=== PATIENT | male | born 1945 | race Caucasian/White ===

== ENCOUNTER 2019-01-06 12:55 | Observation (INO) | payer MEDICARE ==
[2019-01-06] MEDS ORDERED: NS 0.9% 1000 ML** 1,000 ML IV ONE (13:03)
--- NOTE | 2019-01-06 13:14 | ED ---
Neurological HPI - HPI Summary HPI Summary: Pt is a 73 y/o M presenting to the ED with a chief complaint of neurological deficit. CODE FLOR CALLED 13:02, pt straight to CT. Per the pts , she thought he was asleep in the backseat of their car, so she tried to talk to him and wake him up at around 1230, but he was not responding to verbal stimuli. They stopped the car and he was still less responsive, but had slurred speech and confusion. He is usually very clear-minded and active, but he does have hx of TIA. She is unsure if he is on blood thinners. Pt himself denies weakness or fever. - History of Current Complaint Chief Complaint: EDNeurologicalDeficit Stated Complaint: SLURRING SPEECH NOT RESPONDING PER Time Seen by Provider: 01/06/19 13:02 Last Known Well Date: 01/06/19 unsure what time, before 12:00 Hx Obtained From: Patient Onset/Duration: Sudden Onset, Started hours ago, Still Present Timing: Constant Onset Severity: Moderate Current Severity: Moderate Pain Intensity: 0 Pain Scale Used: 0-10 Numeric Character: Impaired Speech, Responsiveness Aggravating: Unknown Alleviating: Unknown Associated Signs and Symptoms: Positive: Memory Loss, Confusion, Decreased Level of Consciousness, Impaired Speech. Negative: Weakness TPA Considered: Yes - not given as advised by physician at [facility] Similar Episode/Dx as: prior TIA - Allergy/Home Medications Allergies/Adverse Reactions: Allergies Allergy/AdvReac Type Severity Reaction Status Date / Time No Known Allergies Allergy Verified 01/06/19 14:31 Home Medications: Home Medications Atorvastatin Calcium 40 mg PO DAILY 01/06/19 [History Confirmed 01/06/19] Clopidogrel 75 mg PO DAILY 01/06/19 [History Confirmed 01/06/19] Losartan Potassium 25 mg PO DAILY 01/06/19 [History Confirmed 01/06/19] Meloxicam 15 mg PO DAILY 01/06/19 [History Confirmed 01/06/19] PMH/Surg Hx/FS Hx/Imm Hx Previously Healthy: Yes Endocrine/Hematology History: Reports: Hx Anticoagulant Therapy - plavix EENT History: Reports: Hx Hearing Aid Neurological History: Reports: Hx Transient Ischemic Attacks (TIA) Infectious Disease History: No Infectious Disease History: Denies: Traveled Outside the [place] in Last 30 Days - Family History Known Family History: Negative: Respiratory Disease - Social History Lives: With Family Hx Substance Use: No Substance Use Type: Reports: None Review of Systems Negative: Fever Neurological: Other - decreased LOC/responsiveness, confusion Positive: Slurred Speech. Negative: Weakness All Other Systems Reviewed And Are Negative: Yes Physical Exam - Summary Physical Exam Summary: Appearance: Well appearing, no pain distress Skin: warm, dry, reflects adequate perfusion Head/face: normal Eyes: EOMI, JABIER ENT: normal Neck: supple, non-tender Respiratory: CTA, breath sounds present Cardiovascular: RRR, pulses symmetrical Abdomen: non-tender, soft Musculoskeletal: normal, strength/ROM intact Neuro: sensory motor intact, see NIH stroke scale. Triage Information Reviewed: Yes Vital Signs On Initial Exam: Initial Vitals Temp Pulse Resp BP Pulse Ox 98.2 F 66 17 148/82 96 01/06/19 12:58 01/06/19 12:58 01/06/19 12:58 01/06/19 12:58 01/06/19 12:58 Vital Signs Reviewed: Yes - [place]estone Coma Scale Best Eye Response: 4 - Spontaneous Best Motor Response: 6 - Obeys Commands Best Verbal Response: 4 - Confused Coma Scale Total: 14 Diagnostics - Vital Signs Vital Signs Temp Pulse Resp BP Pulse Ox 01/06/19 12:58 98.2 F 66 17 148/82 96 - Laboratory Result Diagrams: 01/06/19 13:15 01/06/19 13:15 Lab Statement: Any lab studies that have been ordered have been reviewed, and results considered in the medical decision making process. - Radiology CXR Radiology Interpretation Completed By: Radiologist Summary of Radiographic Findings: No active cardiopulmonary disease. ED physician has reviewed this report. - CT Brain CT CT Interpretation Completed By: Radiologist Summary of CT Findings: No acute intracranial pathology. Chronic small vessel ischemic changes. ED physician has reviewed this report. Head/Neck CTA CT Interpretation Completed By: Radiologist Summary of CT Findings: NO INTERNAL CAROTID ARTERY STENOSIS BY NASCET CRITERIA. THERE IS INTRACRANIAL ATHEROSCLEROSIS WITH MODERATE NARROWING OF THE MID THIRD OF THE BASILAR ARTERY. ELSEWHERE, THERE IS NO ANEURYSM, VASCULAR MALFORMATION, OCCLUSION, OR STENOSIS OF THE VISUALIZED INTRACRANIAL CIRCULATION. ED physician has reviewed this report. - EKG 1322 Cardiac Rate: NL - 65bpm EKG Rhythm: Sinus Rhythm ST Segment: Normal Ectopy: None Summary of EKG Findings: EKG at 1322 shows NSR at 65bpm with no STEMI. NIH Scale - NIH Scale Level of Consciousness: Alert/Keenly Responsive Ask Patient the Month and His/Her Age: Neither Correct/Aphasic Ask Pt to Open/Close Eyes and Business Account Executive/Release Non-Paretic Hand: Both Correctly Best Gaze (Only Horizontal Eye Movement): Normal Visual Field Testing: No Visual Loss Facial Paresis-Pt to Smile & Close Eyes or Grimace Symmetry: Normal/Symmetrical Motor Function - Right Arm: No Drift-Holds 10 Seconds Motor Function - Left Arm: No Drift-Holds 10 Seconds Motor Function - Right Leg: No Drift-Holds 10 Seconds Motor Function - Left Leg: No Drift-Holds 10 Seconds Limb Ataxia-Must be out of Proportion to Weakness Present: Absent Sensory (Use Pinprick to Test Arms/Legs/Trunk/Face): Normal Best Language (Describe Picture, Name Items): No Aphasia Dysarthria (Read Several Words): Slurs Some Words Extinction and Inattention: No Abnormality Total Score: 3 Re-Evaluation - Re-Evaluation 1st re-eval Re-Evaluation Time: 13:31 Change: Unchanged Comment: Pt actively vomiting in room. Course/Dx - Course Course Of Treatment: Pt is a 73 y/o M presenting to the ED with a neurological deficit. CODE RAY CALLED 1302, pt straight to CT. Pts states he was asleep, and when she tried to wake him he was unresponsive. He eventually woke up but had slurred speech and was quite confused, which is abnormal compared with his baseline. He does have hx of TIA. Pt returned to room at 1311 and denies weakness or fever. NIH stroke scale as of 1318 is 3 d/t inability to correctly answer date and age, as well as some slurred speech and confusion. Brain CT shows no acute intracranial pathology, but there are chronic small vessel ischemic changes. Pt is on Plavix. Pt began actively vomiting at 1331, I gave Zofran to alleviate. Bellamy on the phone at 1338 with telestroke to perform second NIH stroke scale. Pt reports TIA 3 weeks ago, but his states it was approximately 3 months ago, with sx recovering in about 20-25 minutes. [place] physician recommends not giving tPA at 1349. His NIH stroke scale on telestroke was 1 d/t mild aphasia. Pt's sx are actively improving while present in the ED, and a CTA will be ordered. CXR shows no active cardiopulmonary disease. CTA of the head/neck shows: NO INTERNAL CAROTID ARTERY STENOSIS BY NASCET CRITERIA. THERE IS INTRACRANIAL ATHEROSCLEROSIS WITH MODERATE NARROWING OF THE MID THIRD OF THE BASILAR ARTERY. ELSEWHERE, THERE IS NO ANEURYSM, VASCULAR MALFORMATION, OCCLUSION, OR STENOSIS OF THE VISUALIZED INTRACRANIAL CIRCULATION. EKG at 1322 shows NSR at 65bpm with no STEMI. I spoke with Dr. Perez who will be accepting the pt to [facility] [place] a dx of CVA. - Differential Dx Differential Diagnoses Neuro: Positive: Cerebrovascular Accident, Dysrhythmia, Hypertension, Intracranial Bleed, Transient Ischemic Attack - Diagnoses Provider Diagnoses: CVA (cerebral vascular accident) - Critical Care Time Critical Care Time: 30-74 min - 60minutes Discharge - Sign-Out/Discharge Documenting (check all that apply): Patient Departure - Discharge Plan Condition: Stable Disposition: ADMITTED TO [facility] Referrals: [facility], [Primary Care Provider] - - Billing Disposition and Condition Condition: STABLE Disposition: Admitted to [facility] - Attestation Statements Document Initiated by Scribe: Yes Documenting Scribe: Magda Mckinney Provider For Whom Scribe is Documenting (Include Credential): Robin Hunt MD. Scribe Attestation: I, arjun Horne for Robin Hunt MD. on 01/06/19 at 1612. Scribe Documentation Reviewed: Yes Provider Attestation: The documentation as recorded by the enidibe, Magda Mckinney accurately reflects the service I personally performed and the decisions made by me, Robin Hunt MD. Status of Scribe Document: Viewed Consult Consult: [id number] - I spoke with Dr. Perez who will be accepting the pt to [facility] with a dx of CVA.
[2019-01-06] MEDS ORDERED: Alteplase* 100 MG VIAL ONE (13:23)
[2019-01-06 13:29] LABS: ABS Basophils 0.1 10^3/ul (0-0.2); ABS Eosinophils 0.1 10^3/ul (0-0.6); ABS Lymphocytes 1.2 10^3/ul (1.0-4.8); ABS Monocytes 0.6 10^3/ul (0-0.8); ABS Neutrophils 4.8 10^3/ul (1.5-7.7); Eosinophil % 1.1 %; Hematocrit 42 % (42-52); Hemoglobin 14.3 g/dL (14.0-18.0); Lymphocyte % 17.4 %; Mean Corpuscular HGB Conc 34 g/dL (31-36); Mean Corpuscular Hemoglobin 31 pg (27-31); Mean Corpuscular Volume 91 fL (80-94); Mean Platelet Volume 7.6 fL (7.4-10.4); Platelet Count 216 10^3/uL (150-450); Red Blood Count 4.59 10^6 /uL (4.18-5.48); Red Cell Distribution Width 13 % (10.5-15); White Blood Count 6.7 10^3/uL (3.5-10.8)
[2019-01-06] MEDS ORDERED: Ondansetron INJ* 2 MG/ML VIAL IV ONE (13:31)
[2019-01-06] MEDS ORDERED: Ondansetron INJ* 2 MG/ML VIAL ONE (13:32)
[2019-01-06] MEDS ORDERED: Alteplase* 100 MG in PREMIX* 100 ML IV ONE (13:33)
[2019-01-06] MEDS ORDERED: ALTEPLASE IV ONE ×3 (13:33→13:45)
[2019-01-06 13:42] LABS: Activated Partial Thrombo Time 26.2 seconds (26.0-36.3); INR 1.21 (0.82-1.09)
[2019-01-06 13:50] LABS: Albumin 4.1 g/dL (3.2-5.2); Albumin/Globulin Ratio 1.5 (1-3); BUN/Creatinine Ratio 18.6 (8-20); Calcium 8.9 mg/dL (8.6-10.3); EGFR African American 105.2 (>60); EGFR Non-African American 86.9 (>60); Globulin 2.8 g/dL (2-4); HDL Cholesterol 31.9 mg/dL; Potassium 3.9 mmol/L (3.5-5.0); Total Bilirubin 0.6 mg/dL (0.2-1.0); Total Protein 6.9 g/dL (6.4-8.9)
[2019-01-06] MEDS ORDERED: Iohexol 350* (CONTRAST) 500 ML MDV IV ONE (14:03)
[2019-01-06] MEDS ORDERED: Acetaminophen TAB* 325 MG PO PRN (16:14)
[2019-01-06] MEDS ORDERED: Ondansetron INJ* 2 MG/ML VIAL IV PRN (16:14)
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
[2019-01-06] MEDS: Clopidogrel TAB* 75 MG PO SCH (20:02)
[2019-01-06] MEDS: Aspirin EC TAB* 81 MG TAB.EC PO SCH (20:02)
[2019-01-06] MEDS: Enoxaparin(*) 40 MG/0.4 ML SYR SUBCUT SCH (20:03)
[2019-01-06] MEDS ORDERED: Atorvastatin* 40 MG TAB PO SCH (21:00)
[2019-01-07 06:24] LABS: ABS Eosinophils 0.1 10^3/ul (0-0.6); ABS Lymphocytes 1.2 10^3/ul (1.0-4.8); ABS Monocytes 0.6 10^3/ul (0-0.8); ABS Neutrophils 4.6 10^3/ul (1.5-7.7); Eosinophil % 1.2 %; Hematocrit 39 % (42-52); Hemoglobin 13.4 g/dL (14.0-18.0); Lymphocyte % 18.6 %; Mean Corpuscular HGB Conc 35 g/dL (31-36); Mean Corpuscular Hemoglobin 31 pg (27-31); Mean Corpuscular Volume 90 fL (80-94); Mean Platelet Volume 7.7 fL (7.4-10.4); Platelet Count 184 10^3/uL (150-450); Red Blood Count 4.29 10^6 /uL (4.18-5.48); Red Cell Distribution Width 13 % (10.5-15); White Blood Count 6.5 10^3/uL (3.5-10.8)
[2019-01-07 06:42] LABS: BUN/Creatinine Ratio 14.1 (8-20); Calcium 8.4 mg/dL (8.6-10.3); EGFR African American 106.6 (>60); EGFR Non-African American 88.1 (>60)
[2019-01-07] MEDS ORDERED: Losartan TAB* 25 MG PO SCH (09:00)
[2019-01-07] MEDS: Aspirin EC TAB* 81 MG TAB.EC PO SCH (09:23)
[2019-01-07] MEDS: Clopidogrel TAB* 75 MG PO SCH (09:23)
--- NOTE | 2019-01-07 09:42 | ECHO ---
*[facility]* [place] [address] Fax #: [phone] Transthoracic Echocardiogram Patient: Ruben Torrez Height: 68 in / 172.7 cm : 1945 Weight: 179.6 lb / Study Date: 01/07/2019 81.6 kg Age: 73 BP: 110 / 63 Gender: M BMI/BSA: 27.4 kg/m^2 / HR: 65 bpm 1.95 m^2 *Cattery Operator: * Holly Vega [facility] *Referring Physician: * Pat Candelario *Reading Physician: * Salome Pichardo MD Indications: TIA. History: PMH: Transient ischemic attack. Risk factors: Hypertension. Hyperlipidemia. Conclusions Summary: 1. Left ventricle: There is mild concentric hypertrophy. Systolic function is normal. The estimated ejection fraction is 55-60%. 2. Left atrium: The atrium is mildly dilated. 3. Atrial septum: Bubble study was negative 4. Mitral valve: There is mild regurgitation. 5. Aortic valve: There is trace to mild regurgitation. 6. Tricuspid valve: There is mild regurgitation. 7. No previous echocardiogram available. Study data: Transthoracic echocardiogram. Procedure: Transthoracic echocardiography was performed. Image quality was fair. A bubble study was performed. Images 93 and 94. Complete 2D, spectral Doppler, and color flow Doppler. Location: Echo laboratory. Patient status: Inpatient. Patient room number: 434. Rhythm: Normal sinus rhythm with PAC's. Findings Left ventricle: The cavity size is normal. There is mild concentric hypertrophy. Systolic function is normal. The estimated ejection fraction is 55-60%. Wall motion is normal; there are no regional wall motion abnormalities. There is no consistent Doppler evidence of clinically significant diastolic dysfunction. Right ventricle: The cavity size is normal. Wall thickness is mildly to moderately increased. The moderator band is in a normal position. Systolic function is normal. Left atrium: The atrium is mildly dilated. Right atrium: The atrium is normal in size. Atrial septum: Bubble study was negative Mitral valve: The leaflets are normal thickness. There is no evidence of stenosis. There is mild regurgitation. Aortic valve: The valve is trileaflet. The leaflets are normal thickness. There is no evidence of stenosis. There is trace to mild regurgitation. Tricuspid valve: The leaflets are normal thickness. There is no evidence of stenosis. There is mild regurgitation. Pulmonic valve: The leaflets are normal thickness. There is no evidence of stenosis. There is trace regurgitation. Aorta: Ascending aorta: The ascending aorta is appears normal. Aortic arch: The aortic arch is appears normal. The aortic root is not dilated. Pericardium: A prominent pericardial fat pad is present. There is no pericardial effusion. Pulmonary arteries: Not well visualized. Systemic veins: Inferior vena cava: The vessel is normal in size. The respirophasic diameter changes are in the normal range (>= 50%). Measurements Left ventricle Value Ref Aortic valve continued Value Ref ANAND, LAX 4.7 cm 4.2 - 5.8 Peak v, S 1.17 m/sec ----- ESD, LAX 3.6 cm 2.5 - 4.0 VTI, S 25.3 cm ----- FS, LAX (L) 22 % Mean grad, S 3.0 mm Hg ----- PW, ED, LAX (H) 1.2 cm 0.6 - 1.0 Peak grad, S 5.0 mm Hg ----- FS (L) 22 % - 43 LVOT/AV, VTI ratio 0.67 ----- PW, ED (H) 1.2 cm 0.6 - 1.0 AR peak v 3.18 m/sec ----- E', lat merlene, TDI (L) 8.7 cm/sec >=10.0 AR PHT 704 ms - ---- E/e', lat merlene, 7 AR peak grad 40 mm Hg ---- - TDI E', med merlene, TDI (L) 6.6 cm/sec >=7.0 Mitral valve Value R ef E/e', med merlene, 10 Peak E 0.63 m/sec ---- - TDI Peak A 0.5 m/sec ----- E', avg, TDI 7.7 cm/sec Decel time 268 ms ---- - E/e', avg, TDI 8 <=14 Peak E/A ratio 1.3 - ---- LVOT Value Ref Pulmonic valve Value Ref Peak winter, S 0.69 m/sec Peak v, S 1.16 m/sec ----- VTI, S 17.0 cm Peak grad, S 5.0 mm Hg ----- Mean grad, S 1 mm Hg WA v, ED 1.23 m/sec ----- WA grad, ED 6 mm Hg ----- Ventricular septum Value Ref IVS, ED (H) 1.3 cm 0.6 - 1.0 Tricuspid valve Value Ref TR peak v 2.41 m/sec <=2.8 Right ventricle Value Ref Peak RV-RA grad, S 23 mm Hg ----- AW thickness, ED (H) 1.0 cm 0.1 - 0.5 ANAND, LAX 2.7 cm Aortic root Value Ref ANAND minor ax, A4C (H) 3.9 cm 1.9 - 3.5 Root diam 3.4 cm <4.1 mid Pressure, S 26 mm Hg Ascending aorta Value Ref AAo AP diam, S 3.4 cm ----- Left atrium Value Ref AP dim, ES (H) 4.10 cm 3.00 - Aortic arch Value Ref 4.00 Arch diam 2.8 cm ----- ML dim, A4C 4.5 cm SI dim, A4C 5.3 cm Decending aorta Value Ref Vol/bsa, ES, 1-p (H) 38 ml/m^2 12 - 37 Manny peak winter 1.08 m/sec ----- A4C Vol/bsa, ES, A/L (H) 37 ml/m^2 16 - 34 Pulmonary artery Value Ref Pressure, S 21.0 mm Hg ----- Right atrium Value Ref SI dim, ES 4.8 cm 3.4 - 5.3 Inferior vena cava Value Ref ML dim, ES, A4C 3.5 cm 2.6 - 4.4 Diam 1.9 cm ----- SI dim, ES, A4C 4.8 cm 3.4 - 5.3 SI dim/bsa, ES, 2.4 cm/m^2 1.8 - 3.0 A4C Estimated RAP 3 mm Hg Aortic valve Value Ref Merlene diam, ED 2.5 cm Legend: (L) and (H) erika values outside specified reference range. Prepared and electronically signed by Salome Pichardo MD 01/07/2019 09:42
--- NOTE | 2019-01-07 11:04 | CONS ---
NEUROLOGY CONSULTATION NOTE: DATE OF CONSULT: 01/07/19 CONSULTING PROVIDER: Dr. Pat Candelario. REASON FOR CONSULT: Stroke like symptoms. CHIEF COMPLAINT: Confusion, slurred speech and vomiting. HISTORY OF PRESENT ILLNESS: Mr. Torrez is a 73-year-old male with history of hypertension, dyslipide olimpia, TIA 3 months ago where he was hospitalized at [facility]. At that time, the patient had symptoms of word-finding difficulty that lasted 10 to 20 minutes. He stated that his stroke was otherwise negative. He was placed on antiplatelet therapy, Plavix, and discharged home. The patient stated that on Sunday evening, he developed the sudden onset left hand and left lower lip numbness t hat lasted approximately 5 minutes. He did not think too much out of it and just ignored the symptom s. On Sunday before 1 p.m., the patient stated that he was sitting in the back of a car after he analia t to event to visit the grave of Jaylan Chavez. The patient was sitting in the back when s uddenly he blacked out. He does not recall what happened. He stated that he woke up confused, quest ioning why he was being pulled out to go to the hospital when he did not have any focal neurological deficits. Apparently, he was evaluated by Telestroke at the [facility] and he was deeme d to be a candidate for IV tPA. However, due to his improving symptoms, the tPA was ordered but was never given. Today, the patient denied any visual disturbance, headaches, focal weakness, or paraest hesias. He denied ever having episodes of hypoglycemia in the past. He does snore at night and does not use a CPAP. NIH stroke scale today is 0. In the emergency room, the patient had labs checked that revealed the WBC of 6.5, hemoglobin of 13.4, hematocrit of 39, platelet count of 184, INR 1.21. Sodium of 140, potassium of 4.0, chloride of 110 , carbon dioxide of 24, creatinine of 0.85. He had a CT of the head that was negative, and a CTA head and neck showed evidence of narrowing in the mid distal third of the basilar artery. There was no e vidence of large vessel occlusion. Please note that the lactic acid was 1.3 and hemoglobin A1c was 5 .7. LDL was 43. PAST MEDICAL HISTORY: Multiple TIAs, one being 3 months ago and the other 10 years ago; hypertension ; dyslipidemia; bilateral ankle subluxation and tonsillectomy. HOME MEDICATIONS: 1. Atorvastatin 40 mg p.o. daily. 2. Clopidogrel 75 mg p.o. daily. 3. Losartan 25 mg p.o. daily. 4. Meloxicam 15 mg p.o. daily. The patient is not taking aspirin. DRUG ALLERGIES: No known drug allergies. FAMILY HISTORY: Positive for heart disease. Mother had AAA and possible dissection. SOCIAL HISTORY: He denied any tobacco use. He denied any excessive alcohol use. He drinks rarely le ss than once a week. He is retired. He lives with his partner, Matilda. REVIEW OF SYSTEMS: A 14-point review of systems was obtained and otherwise negative except for what was mentioned in the HPI. PHYSICAL EXAM: Vitals: Temperature of 97.9, pulse of 62, respiratory rate of 18, blood pressure of 110/63. Mental Status: Awake, alert, and oriented to person, place, time, and general circumstances . Speech and language including expression, naming, repetition, and comprehension were assessed and found to be normal. The patient was having breakfast independently. Cranial Nerves: Normal confron tation testing bilaterally. Pupils are mid range and reactive to light. Normal consensual response. No ptosis. Sensation is intact on the forehead, cheeks, and jaw region bilaterally. There is no f acial droop. He is able to hear throughout the history process. Symmetrical palatal elevation. Nor mal strength against resistance. Tongue is symmetric and midline with no atrophy or fasciculation. M otor Examination: No abnormal movements or pronator drift. Normal bulk and tone bilaterally. Proxi mal and distal upper and lower extremity muscles are normal with 5/5 strength bilaterally. Reflexes: Right/left, brachioradialis 2/2, biceps 2/2, triceps 2/2, knee 2/2, ankle 2/2, flexion plantar resp onse bilaterally. Sensation intact to light touch and pinprick throughout the upper and lower extrem ities. Vibratory sensation is 15 seconds on the right and 16 seconds on the left great toes. Proprio ception is intact throughout. Coordination: Normal chrpex-gw-lauq and qiju-qd-yvri testing bilatera lly. Gait: Normal stance, good posture. No ataxia. ASSESSMENT: Mr. JAMEEL Torrez is a 73-year-old man with history of recurrent transient ischemic attacks, mid basilar artery stenosis, who presented with sudden onset disorientation, minimal responsive stat e, with a transient episode of left hand and facial paraesthesias that resolved. He is currently asy mptomatic without any focal neurological deficits. We suspect the patient had another transient isch emic attack most likely in the posterior circulation. This can explain some of his perioral numbness on the left side as well as the left hand paresthesias, however, this does not entirely explain his unresponsive state. I am concerned that there is a second problem here which could potentially be ei ther excessive sleepiness, obstructive sleep apnea, hypoglycemia, or any other non-neurological etiol ogies. We have to make sure the patient not have any underlying cardiac arrhythmias, they can be also explaining some of his symptoms. RECOMMENDATIONS: I recommend placing the patient on telemetry. Continue both aspirin 81 mg and Plav ix 75 mg p.o. daily. The patient was not taking aspirin at home and was only on Plavix. Please obta in orthostatic vitals. Order an MRI of the brain without contrast. No need for any intracranial vas cular studies since the CTA was done. Please obtain a 2D transthoracic echo. The patient will need a sleep study as an outpatient. Continue atorvastatin given his low LDL level. Transient ischemic at tack and primary stroke education was completed today. Please perform neuro checks every 4 hours. N o need for Physical Therapy/Occupational Therapy/TEAM ASSISTANT evaluation and treatment given that the patient is currently asymptomatic. [id number]/[facility] #: [id number]
[2019-01-07 15:50] VITALS: BP 132/75
[2019-01-07] MEDS: Enoxaparin(*) 40 MG/0.4 ML SYR SUBCUT SCH (15:54)
--- NOTE | 2019-01-07 20:31 | EEG ---
ELECTROENCEPHALOGRAPHY REPORT: DATE OF STUDY: 01/07/19 DATE READ: 01/07/19 ORDERED BY: Rachel Saenz MD INDICATION: Sudden onset confusion. This EEG was requested to evaluate for epileptiform abnormaliti es. DURATION: 10:29 - 10:56 MEDICATIONS: 1. Aspirin. 2. Plavix. 3. Lovenox. 4. Lipitor. 5. Tylenol. 6. Cozaar. 7. Zofran. CLINICAL STATE: Awake and sleep. REPORT: The waking background showed appropriate organization with clearly defined anterior-posterio r voltage and frequency gradients. There was a well-defined posterior dominant rhythm of 10 Hz, whic h was symmetrical and showed normal reactivity. Anteriorly there was an expected pattern of lower vo ltage irregular mixed faster frequencies. Photic stimulation and hypoventilation were not performed. Single electrode EKG showed normal sinus rhythm with the rate of 85 beats per minute. Throughout t he recording there were no epileptiform discharges. CLINICAL IMPRESSION: This is a normal awake and sleep EEG. There were no focal epileptiform abnorma lities. Clinical correlation is recommended. [id number]/[facility] #: [id number]
--- NOTE | 2019-01-07 22:56 | DS ---
CC: Chanelle Moreno; Dr. Saenz* DISCHARGE SUMMARY: DATE OF ADMISSION: 01/06/19 DATE OF DISCHARGE: 01/07/19 PRIMARY CARE PROVIDER: Chanelle Moreno. CONSULTING PHYSICIAN: Dr. Saenz, Neurology. ATTENDING PHYSICIAN: Dr. Daniella Astudillo* (dictated by Heath Scott NP). PRIMARY DIAGNOSES: 1. Transient ischemic attack. 2. Hypertension. 3. Hyperlipidemia. HISTORY AND PHYSICAL/HOSPITAL COURSE: Mr. Torrez is a 73-year-old male with a past medical history significant for recent TIA, hypertension, hyperlipidemia, who presented to the emergency department on 01/06/19 after being found to have slurred speech and confusion by his partner. Please see history and physical dictated by MER Egan, for complete summary of the events leading up to this hospitalization, but in short, he had short episode of unresponsiveness and later noted to have slurred speech and some confusion. When he presented to the emergency department, his symptoms started to resolve. His NIH scale was 3. TPA was considered, but held due to resolving symptoms. The patient was evaluated by Neurology. While in the emergency department, the patient also had an echocardiogram, which revealed normal sinus rhythm. In addition, he had a head CTA, which showed no internal carotid artery stenosis, intracranial atherosclerosis with moderate narrowing of the mild third basal artery. Given his symptoms and history of TIA, the patient was admitted to telemetry for further evaluation. During this admission, the patient had neuro checks that were unchanged. He has remained on telemetry and is noted to be in sinus rhythm. He was evaluated by Neurology this morning, who suspected the patient had another TIA, most likely in his posterior circulation. Dr. Saenz from Neurology also expressed some concern that there may be secondary problem, which could potentially be the excessive sleepiness, obstructive sleep apnea, hypoglycemia, or other non- neurological etiologies. Neurology recommended an echocardiogram and an MRI of the brain without contrast, both of which were completed. MRI of the brain revealed chronic white matter changes. Echocardiogram revealed mild concentric hypertrophy of left ventricle. Estimated ejection fraction is 55% to 60%. Negative bubble. Mild mitral, aortic, tricuspid regurgitation. Mildly dilated atrium. Given the patient's unremarkable workup, he is stable for discharge home. I discussed this with Dr. Saenz. It is recommended by Dr. Saenz from Neurology that the patient continue both aspirin and Plavix for at least 30 days. It is also recommended that he follow up in 4 weeks with his neurologist. During this hospitalization, we decided that the patient did not need physical therapy, occupational therapy, and speech therapy as he was asymptomatic after presentation to the emergency department. The patient is stable for discharge home today. REVIEW OF SYSTEMS: A 14-point review of systems was completed, all were negative. PHYSICAL EXAM: Vital Signs: Temp 98.0, HR 58, RR 18, O2 saturation 98% on room air, BP 132/75. General: Mr. Torrez is a 73-year-old male who is sitting in a chair. Appears to be in no acute distress. Appears stated age. HEENT: PERRLA. EOMs intact. Oral mucosa is moist without lesion. Posterior pharynx is clear. Neck: Supple. No lymphadenopathy. Respiratory: Lungs are clear to auscultation. There are no wheezes, rhonchi, or rubs. Good aeration. Cardiac: S1, S2 present. Regular rate and rhythm. No murmurs, rubs, or gallops. Abdomen: Soft, nontender. Bowel sounds are normoactive. Extremities: No edema. No clubbing or cyanosis. Pedal pulses 2+ bilaterally. Musculoskeletal: No pain or deformities. Skin: Skin is grossly intact without lesions. Neuro : Cranial nerves II through XII are grossly intact. No drift. Coordination intact. Strength is 5/5 throughout. LABORATORY DATA: WBC 6.5, hemoglobin 13.4, hematocrit 39, platelets 184. Sodium 140, potassium 4.0, chloride 110, carbon dioxide 24, BUN 12, creatinine 0.85, glucose 102. Cholesterol 94, LDL 43, HDL 31.9. DISCHARGE PLAN/FOLLOWUP: 1. TIA: We suspect the patient's transient neurological symptoms are secondary to a TIA. The patient should continue dual antiplatelet for 30 days and then to stop the aspirin and continue Plavix as he was on that previously. The patient should follow up with Dr. Saenz or Dr. Obdulio Reyes in [place]. He should make these followups before 4 weeks. In addition, the patient will also follow up with his primary care and discuss secondary causes including obstructive sleep apnea, which I have encouraged the patient to do. Finally, the patient would benefit from the implant loop recorder to rule out any cardiac arrhythmia causing his recurrent TIAs. 2. Recurrent TIAs. As mentioned above, the patient has had multiple TIAs, specifically one three weeks ago, one 3 months ago, and two 10 years ago. I discussed this with the patient and his partner and encouraged them to follow up with Neurology and possibly Cardiology for further evaluation of cause of these frequent TIAs. I discussed the possibility of implanted loop recorder to rule out cardiac arrhythmia. I also discussed further evaluation for secondary causes as mentioned above. Both stated understanding. 3. Hypertension: The patient is on losartan, which he should continue at home. 4. Hyperlipidemia: As mentioned above, the patient's labs are in goal range. He should continue his atorvastatin. 5. Followup: The patient should follow up with his primary care this week or beginning of next week and discuss further evaluation for things such as sleep apnea. The patient should also follow up with neurologist as mentioned above in at least 4 weeks. 6. Education: The patient and partner were educated on signs and symptoms, new or worsening conditions, and when to return to emergency department. Both stated understanding. This is summarized report of complex medical history and hospital say. For further details, please see entire medical record. TIME SPENT: Thirty-five minutes was spent on this discharge, greater than half the time was spent [id number] with the patient, discussing discharge plan and instructions. PLAN: This plan was discussed with my attending, Dr. Daniella Astudillo, who is in agreement with my plan of care. HEATH SCOTT, MICAH [id number]/[facility] #: [id number] DAFNE
== END 2019-01-07 18:52 | disposition home or self-care (01) ==
LOC: ED 12:55 → MEDTELE 16:14
PROVIDERS: ADMIT Internal Medicine; ATTEND Internal Medicine
DX: G45.9 Transient cerebral ischemic attack, unspecified (principal); I10 Essential (primary) hypertension; E78.5 Hyperlipidemia, unspecified; R47.81 Slurred speech; R41.0 Disorientation, unspecified; R11.10 Vomiting, unspecified; Z79.82 Long term (current) use of aspirin; S93.01XA Subluxation of right ankle joint, initial encounter; S93.02XA Subluxation of left ankle joint, initial encounter; Z79.01 Long term (current) use of anticoagulants
CPT/HCPCS: 36415; 70450; 70496; 70498; 70551; 71045; 80048; 80053; 80061; 83036; 83605; 84484; 85025; 85610; 85730; 86850; 86900; 86901; 93005; 93306; 95819; 96372; 96374; 99285; A9270-GY; G0378; G8978-GP-CH; G8979-GP-CH; G8980-GP-CH; G9165-GN-CI; G9166-GN-CI; G9167-GN-CI; J1650; J2405; J2997; Q9967